=== PATIENT | female | born 1960 | race Caucasian/White ===

== ENCOUNTER 2016-05-17 13:35 | Emergency (ER) | payer MEDICAID ==
[~2016-05-17] VITALS: Ht 170.2 cm; Wt 78.0 kg
[2016-05-17 14:01] VITALS: BP 150/91; PULSE 100; RESP 15; TEMP 97.8; O2SAT 98
[2016-05-17] MEDS ORDERED: IBUPROFEN 600 MG TABLET PO ONE (16:00)
[2016-05-17] MEDS ORDERED: BACITRACIN 1 GM OINT TP ONE (16:37)
[2016-05-17 16:39] VITALS: BP 132/78; PULSE 80; RESP 15; TEMP 98.4; O2SAT 98
== END 2016-05-17 16:39 | disposition home or self-care (01) ==
LOC: SED 13:35
DX: S61.211D Laceration without foreign body of left index finger without damage to nail, subsequent encounter (principal); R03.0 Elevated blood-pressure reading, without diagnosis of hypertension; Z90.49 Acquired absence of other specified parts of digestive tract; W26.0XXD Contact with knife, subsequent encounter
CPT/HCPCS: 73140-TC; 99284

== ENCOUNTER 2020-05-20 08:29 | Emergency (ER) | payer OTHER, SELFPAY ==
[~2020-05-20] VITALS: Ht 162.6 cm; Wt 80.3 kg
[2020-05-20 08:34] VITALS: BP_SYST 163
[2020-05-20] MEDS ORDERED: ACETAMINOPHEN 500 MG TABLET PO ONE (09:00)
[2020-05-20] MEDS ORDERED: NACL 0.9% 1,000 ML IV ONE (09:00)
[2020-05-20 09:38] LABS: BASOPHILS % (AUTO) 0.5 % (0.0-2.0); EOSINOPHILS % (AUTO) 0.1 % (0.0-4.0); HEMATOCRIT 39.4 % (36-48); HEMOGLOBIN 13.6 g/dL (12.0-16.0); LYMPHOCYTES # (AUTO) 1.1 K/uL (1.0-5.5); LYMPHOCYTES % (AUTO) 21.1 % (20.5-51.5); MEAN CORPUSCULAR HEMOGLOBIN 29 pg (27-31); MEAN CORPUSCULAR HGB CONC 35 % (32-36); MEAN CORPUSCULAR VOLUME 84 fL (79.0-98.0); MONOCYTES # (AUTO) 0.3 K/uL (0.0-1.0); MONOCYTES % (AUTO) 5.4 % (1.7-9.3); NEUTROPHILS # (AUTO) 3.9 K/uL (1.8-7.7); NEUTROPHILS % (AUTO) 72.9 % (40.0-70.0); PLATELET COUNT (AUTO) 173 K/uL (130-430); RED BLOOD CELL COUNT(AUTO) 4.68 MIL/uL (4.2-6.2); RED CELL DISTRIBUTION WIDTH 12.9 % (9.0-15.0); WHITE BLOOD COUNT (AUTO) 5.3 K/uL (4.8-10.8)
[2020-05-20 10:12] LABS: CALCIUM 9.5 mg/dL (8.4-11.0); CREATININE 0.75 mg/dL (0.55-1.30)
[2020-05-20 10:15] LABS: POTASSIUM 3.8 mmol/L (3.5-5.1)
[2020-05-20 10:18] LABS: ALBUMIN 4.1 g/dL (3.4-4.8); TOTAL BILIRUBIN 0.5 mg/dL (0.0-1.0)
[2020-05-20 12:55] VITALS: BP_SYST 146
== END 2020-05-20 12:55 | disposition home or self-care (01) ==
LOC: SED 08:29
DX: U07.1 COVID-19 (principal)
CPT/HCPCS: 71045; 80053; 84484; 85025; 93005; 99285; C9803; J7030; U0003